=== PATIENT | male | born 1995 | race Caucasian/White ===

== ENCOUNTER 2017-03-06 19:01 | Emergency (ER) | payer BC, MEDICAID | END 2017-03-06 20:25 | disposition home or self-care (01) | LOC: FTE 19:01 | DX: M25.511 Pain in right shoulder (principal); R40.2142 Coma scale, eyes open, spontaneous, at arrival to emergency department; R40.2362 Coma scale, best motor response, obeys commands, at arrival to emergency department; R40.2252 Coma scale, best verbal response, oriented, at arrival to emergency department | CPT/HCPCS: 99283 ==